=== PATIENT | male | born 1965 | race Caucasian/White ===

== ENCOUNTER → 2018-10-06 | Outpatient (CLI) | payer BC ==
[~2018-10-06] MED LIST: ACET500T68 PO; ALLO300T PO; CHOL100013 PO; DICL50TA4 PO; LEVO100T5 PO; METH-37 PO
[2018-10-06 16:18] LABS: BASO % 0 % (0-3); EOS # 0.1 x10^3/uL (0.0-0.7); EOS % 2 % (0-3); HEMOGLOBIN 13.4 g/dL (13.0-17.5); LYMPH # 2.3 x10^3/uL (1.0-4.8); LYMPH % 30 % (24-48); MEAN CORPUSCULAR HEMOGLOBIN 30 pg (25-35); MEAN CORPUSCULAR HGB CONC 33 g/dL (31-37); MEAN CORPUSCULAR VOLUME 91 fL (79-100); MONO # 0.7 x10^3/uL (0.0-1.1); MONO % 10 % (0-9); NEUT # 4.4 x10^3uL (1.8-7.7); NEUT % 58 % (31-73); PLATELET COUNT 181 x10^3/uL (140-400); RED CELL DISTRIBUTION WIDTH 13.4 % (11.5-14.5); WHITE BLOOD COUNT 7.5 x10^3/uL (4.0-11.0)
[2018-10-06 16:34] LABS: ALBUMIN 3.9 g/dL (3.4-5.0); ALBUMIN/GLOBULIN RATIO 1.2 (1.0-1.7); CALCIUM 8.9 mg/dL (8.5-10.1); CREATININE 0.8 mg/dL (0.7-1.3); GFR 101.9; TOTAL BILIRUBIN 1.6 mg/dL (0.2-1.0); TOTAL PROTEIN 7.1 g/dL (6.4-8.2)
--- NOTE | 2018-11-19 14:09 | HP ---
ADMIT DATE: ANTICIPATED DATE OF SURGERY: 11/24/2018 HISTORY OF PRESENT ILLNESS: The patient is a pleasant 53-year-old who in 2010 underwent lumbar surgery for herniated disk and lateral stenosis at L4-L5 and L5-S1 on the right. He did very well from that operation. About 2 months ago, he developed severe pain in his lower back and right leg along with weakness in his right foot. He woke up with the problem. He notes the pain in his lower back on the right side, which radiates into his right buttock and lateral hip and then down the lateral thigh, anterior leg to the right ankle. He has feelings of numbness and weakness in his right foot and stumbles. He did go to the Emergency Room last Thursday because of severe pain where he said he received steroids, which did help him. Virtually any activity, especially standing and walking, increases his pain. Lying flat on the floor and with his knees up, help him. He has been resting since the problem developed and the pain remains moderately severe. He says that narcotic pain medications do not help him much, and the steroids help, and also diclofenac helps. There is no problem on the left side. PAST MEDICAL HISTORY: None noted. PAST SURGICAL HISTORY: Lumbar microdecompression L4-L5 and L5-S1 in 2010. FAMILY HISTORY: None noted. SOCIAL HISTORY: Works in the home. . Drinks alcohol 1-2 times per week. ALLERGIES: No known drug allergies. CURRENT MEDICATIONS: Diclofenac. REVIEW OF SYSTEMS: A 12-point review of systems was obtained and is noncontributory except for that mentioned above. PHYSICAL EXAMINATION: NEUROSURGERY EXAMINATION: GENERAL APPEARANCE: Alert, pleasant, in no acute distress. HEAD: Normocephalic and atraumatic. SKIN: Warm and dry. Well-healed lumbar incision. MUSCULOSKELETAL: Lumbar paraspinal muscle bulk is normal, restricted range of motion of the lumbar spine, [id number] tenderness of lower lumbar spine with palpation, normal range of motion of the lower extremities bilaterally. EXTREMITIES: No clubbing, cyanosis or edema. NEUROLOGIC: Alert and oriented x 3, normal recent and remote memory. Strength 5/5 in bilateral lower extremities except 4/5 right foot dorsiflexion, 2/5 right EHL, sensory was intact to light touch in the bilateral lower extremities except for decrease in light touch in the anterior lateral leg extending to the dorsum of the right foot, reflexes were present and symmetric in the lower extremities bilaterally, positive straight leg raising on the right at 30 degrees were seen by Lasegue's maneuver, negative straight leg raising on the left, abnormal gait with right foot drop. IMAGING: Reviewed. I reviewed a lumbar MRI scan. This scan was from 09/22/2018. On that study, there are postoperative changes on the right side at L4-L5 and L5-S1. There appears to be a sequestered disk fragment, most likely a right-sided inferior herniation from the L4-L5 disk, which was behind the body of L5 across the foramen and extends virtually to the L5-S1 disk space. This is associated with significant right lateral recess stenosis. ASSESSMENT: 1. Intervertebral disk disorder with radiculopathy, lumbosacral region. 2. Intervertebral disk disorders with radiculopathy, lumbar region. 3. Right foot drop. PLAN: The patient has a large herniated disk fragment, which appears to be compressing the right L5 nerve root behind the body of L5. He has a foot drop, which is significant. My recommendation is that he undergo lumbar microsurgery to remove the large herniated disk fragment and decompress the right L5 nerve root. I did discuss the nature and the surgery and the risks involved. He understands. He would like to go ahead. We will make the arrangements. TANGELA HADLEY MD DR: BRANDON/emily JOB#: [id number] / [id number]
--- NOTE | 2018-11-19 17:28 | NUR ---
PATIENT'S SURGERY 10/20/2018 WAS MOVED TO 11/24/2018 AND WAS CALLED 11/18/2018 AT 1830 FOR SURGERY WITH SAME TIME AND PRE- OP INSTRUCTIONS AND VERBALIZED UNDERSTANDING.
== END | disposition home or self-care (01) ==
LOC: SURGPAT 13:14
PROVIDERS: ATTEND Neurological Surgery
DX: Z01.818 Encounter for other preprocedural examination (principal); M51.16 Intervertebral disc disorders with radiculopathy, lumbar region; M51.17 Intervertebral disc disorders with radiculopathy, lumbosacral region; M21.371 Foot drop, right foot
CPT/HCPCS: 36415; 80053; 85025; 87641